=== PATIENT | female | born 1985 | race Caucasian/White ===

== ENCOUNTER 2017-10-19 15:52 | Emergency (ER) | payer SELFPAY ==
--- NOTE | 2017-10-19 18:04 | XRay Report ---
FINAL REPORT EXAM: XR WRIST 3+V RT HISTORY: fall/pain in the right wrist TECHNIQUE: AP, lateral, and oblique views of the right wrist PRIORS: None. FINDINGS: On the oblique view, there is subtle cortical irregularity involving the distal articular surface of the radial styloid process. I cannot exclude small area of incomplete fracture. No other evidence of acute fracture or dislocation is seen. Generalized swelling around the wrist is seen but no radiopaque foreign bodies are noted. Joint spaces are maintained. IMPRESSION: On one view only, subtle cortical irregularity involving the distal radius. Possible small fracture is not excluded.
--- NOTE | 2017-10-19 18:08 | Emergency Department Report ---
ED Extremity Problem HPI - General Chief complaint: Extremity Injury, Upper Stated complaint: RIGHT ARE SWOLLEN Time Seen by Provider: 10/19/17 17:43 Source: patient, upper cutter Mode of arrival: Ambulatory Limitations: Language Barrier - History of Present Illness Initial comments: Patient is a 31-year-old female who slipped and fell at home. Patient fell on outstretched right arm is complaining of distal forearm pain. Also some swelling present. Patient states aching pain is 8 out of 10 in severity. - Related Data Previous Rx's Medication Instructions Recorded Last Taken Type HYDROcodone/APAP 5-325 [Melrose 1 each PO Q4HR PRN #12 tablet 10/19/17 Unknown Rx 5/325] Ibuprofen [Motrin] 600 mg PO Q8H PRN #20 tablet 10/19/17 Unknown Rx Allergies Allergy/AdvReac Type Severity Reaction Status Date / Time No Known Allergies Allergy Unverified 10/19/17 16:16 ED Review of Systems ROS: Stated complaint: RIGHT ARE SWOLLEN Other details as noted in HPI Comment: All other systems reviewed and negative ED Past Medical Hx - Past Medical History Previous Medical History?: No - Surgical History Past Surgical History?: No - Social History Smoking Status: Never Smoker Substance Use Type: None - Medications Home Medications: Home Medications Medication Instructions Recorded Confirmed Last Taken Type HYDROcodone/APAP 5-325 [Melrose 1 each PO Q4HR PRN #12 tablet 10/19/17 Unknown Rx 5/325] Ibuprofen [Motrin] 600 mg PO Q8H PRN #20 tablet 10/19/17 Unknown Rx ED Physical Exam - General Limitations: Language Barrier General appearance: alert, in no apparent distress - Head Head exam: Present: atraumatic, normocephalic - Eye Eye exam: Present: normal appearance - ENT ENT exam: Present: mucous membranes moist - Neck Neck exam: Present: normal inspection - Respiratory Respiratory exam: Present: normal lung sounds bilaterally. Absent: respiratory distress - Cardiovascular Cardiovascular Exam: Present: regular rate, normal rhythm. Absent: bradycardia , tachycardia, systolic murmur, diastolic murmur, rubs, gallop - GI/Abdominal GI/Abdominal exam: Present: soft, normal bowel sounds - Extremities Exam Extremities exam: Present: normal inspection, other (and has some swelling and mild bruising to the distal right forearm.) - Back Exam Back exam: Present: normal inspection - Neurological Exam Neurological exam: Present: alert, oriented X3 - Psychiatric Psychiatric exam: Present: normal affect, normal mood - Skin Skin exam: Present: warm, dry, intact, normal color. Absent: rash ED Course Vital Signs 10/19/17 16:16 Temperature 99 F Pulse Rate 65 Respiratory 16 Rate Blood Pressure 125/75 O2 Sat by Pulse 100 Oximetry ED Medical Decision Making - Radiology Data interpreted by me: X-ray of the right wrist shows a distal radius and ulna greenstick fracture present in the shaft. - Medical Decision Making Patient be placed in a sugar tong splint and will be discharged home follow orthopedics. Patient was given Melrose here for pain as well as at home. This constitutes fracture care Critical care attestation.: If time is entered above; I have spent that time in minutes in the direct care of this critically ill patient, excluding procedure time. ED Disposition Clinical Impression: Radius/ulna fracture Qualifiers: Encounter type: initial encounter Fracture type: closed Laterality: right Qualified Code(s): S52.91XA - Unspecified fracture of right forearm, initial encounter for closed fracture; S52.201A - Unspecified fracture of shaft of right ulna, initial encounter for closed fracture Disposition: DC-01 TO HOME OR SELFCARE Is pt being admited?: No Does the pt Need Aspirin: No Condition: Stable Instructions: Wrist Fracture in Adults (ED) Referrals: PRIMARY CARE [Primary Care Provider] - 3-5 Days Time of Disposition: 18:08 Print Language: HEBREW
[2017-10-19 18:56] VITALS: BP 120/70
== END 2017-10-19 18:55 | disposition home or self-care (01) ==
LOC: ED 15:52
DX: S52.591A Other fractures of lower end of right radius, initial encounter for closed fracture (principal); W18.39XA Other fall on same level, initial encounter; Y93.89 Activity, other specified; Y99.8 Other external cause status; Y92.098 Other place in other non-institutional residence as the place of occurrence of the external cause